=== PATIENT | female | born 1980 | race Caucasian/White ===

== ENCOUNTER 2016-12-01 13:47 | Emergency (ER) | payer OTHER ==
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
[~2016-12-01 13:47] MED LIST: HYDROCODONE-APA1 T56 PO; IBUPROFEN PO; ILOTYCIN1 G1 OP; NO MEDICATIONS; VICODIN 5/1 TAB 5/50 PO
[2016-12-01 14:37] LABS: BASOPHIL# 0.1 X10e3 (0-0.3); EOSINOPHIL# 0.2 X10e3 (0-0.7); EOSINOPHIL% 2.1 % (0.0-7.0); HEMATOCRIT 40.1 % (35.0-45.0); HEMOGLOBIN 13.5 gm/dL (12.0-16.0); LYMPHOCYTE# 1.9 X10e3 (1.0-3.5); MEAN CELL VOLUME 93.4 FL (83-96); MEAN CORPUSCULAR HEMOGLOBIN 31.5 PG (28-34); MEAN CORPUSCULAR HGB CONC 33.7 g/dL (30-36); MEAN PLATELET VOLUME 8.2 FL (6.5-11.5); MONOCYTE# 0.4 X10e3 (0-1.0); MONOCYTE% 5.5 % (3.0-12.0); NEUTROPHIL% 66.4 % (40-75); PLATELET COUNT 266 X10e3 (140-420); WHITE BLOOD COUNT 7.6 X10e3 (4.0-10.5)
[2016-12-01 14:41] LABS: DIFF IND NO
[2016-12-01 14:55] LABS: BUN/CREATININE RATIO 22.5; CALCIUM SERUM 8.9 mg/dL (8.4-10.2); CREATININE SERUM 0.8 mg/dL (0.6-1.4); GLOM FILT RATE Estimated 93.6 mL/min (>60); POTASSIUM 3.7 mmol/L (3.5-5.1)
== END 2016-12-01 16:07 | disposition home or self-care (01) ==
LOC: SED 13:47
PROVIDERS: Physician Assistant
DX: R51 Headache (principal); M54.2 Cervicalgia; F17.200 Nicotine dependence, unspecified, uncomplicated; Z88.5 Allergy status to narcotic agent
CPT/HCPCS: 70450; 70491; 71260; 80048; 84703; 85025; 99284; Q9967